=== PATIENT | male | born 1990 | race Caucasian/White ===

== ENCOUNTER 2018-10-11 22:29 | Emergency (ER) | payer OTHER ==
[2018-10-11 22:44] VITALS: RESP 16
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
[2018-10-11 22:55] LABS: Basophils # (A) 0.1 k/uL (0-0.2); Basophils % (A) 1 %; Eosinophils # (A) 0.2 k/uL (0-0.7); Eosinophils % (A) 2 %; HGB 17.3 gm/dL (13.0-17.5); Lymphocytes # (A) 2.4 k/uL (1.0-4.8); Lymphocytes % (A) 27 %; MCH 32.7 pg (25.0-35.0); MCHC 34.6 g/dL (31.0-37.0); MCV 94.7 fL (80.0-100.0); Mean Platelet Volume 6.5; Monocytes # (A) 0.5 k/uL (0-1.0); Monocytes % (A) 5 %; Neutrophils # (A) 5.4 k/uL (1.3-7.7); Neutrophils % (A) 62 %; Platelet Count 264 k/uL (150-450); RBC 5.28 m/uL (4.30-5.90); RDW 13.6 % (11.5-15.5); WBC 8.8 k/uL (3.8-10.6)
--- NOTE | 2018-10-11 22:57 | XR ---
EXAM: XR Chest, 1 View CLINICAL HISTORY: ITS.REASON XR Reason: Pain TECHNIQUE: Frontal view of the chest. COMPARISON: None FINDINGS: Hardware: None. Lungs/pleura: Normal. No focal consolidation. No pleural effusion or pneumothorax. Heart/mediastinum: Normal. No cardiomegaly. Soft tissues: Unremarkable. Bones: No acute fracture. Upper abdomen: Normal. IMPRESSION: No acute disease identified.
--- NOTE | 2018-10-11 22:59 | XR ---
EXAM: XR Pelvis, 1 or 2 Views CLINICAL HISTORY: ITS.REASON XR Reason: Pain TECHNIQUE: Frontal view of the pelvis. COMPARISON: None FINDINGS: Bones/joints: No displaced fracture or dislocation identified. Joint space is maintained. No bony lesion. Soft tissues: Present phleboliths in the pelvis. Nonspecific 2.0 cm calcified structure projected over the right sacrum. IMPRESSION: No displaced fracture or dislocation identified.
[2018-10-11 23:07] LABS: INR 0.9 (<1.2); Prothrombin Time 9.9 sec (9.0-12.0)
[2018-10-11 23:08] LABS: ALT 39 U/L (21-72); AST 48 U/L (17-59); Albumin 4.9 g/dL (3.5-5.0); Alkaline Phosphatase 97 U/L (38-126); Amylase 47 U/L (30-110); Anion Gap 12 mmol/L; Blood Urea Nitrogen 13 mg/dL (9-20); Calcium 9.5 mg/dL (8.4-10.2); Carbon Dioxide 28 mmol/L (22-30); Chloride 104 mmol/L (98-107); Glucose 104 mg/dL (74-99); Lipase 52 U/L (23-300); Potassium 4.1 mmol/L (3.5-5.1); Sodium 144 mmol/L (137-145); Total Bilirubin 0.4 mg/dL (0.2-1.3); Total Protein 8.2 g/dL (6.3-8.2)
[2018-10-11 23:10] LABS: Partial Thromboplastin Time 21.6 sec (22.0-30.0)
[2018-10-11 23:12] LABS: Glucose,Whole Blood 102 mg/dL (75-99)
[2018-10-11 23:14] LABS: Creatine Kinase 434 U/L (55-170)
[2018-10-11 23:18] LABS: Alcohol 257 mg/dL
[2018-10-11 23:27] LABS: Creatine Kinase MB 1.4 ng/mL (0.0-2.4); Troponin I <0.012 ng/mL (0.000-0.034)
--- NOTE | 2018-10-11 23:28 | CT ---
EXAM: CT Head Without Intravenous Contrast CLINICAL HISTORY: ITS.REASON CT Reason: Pain TECHNIQUE: Axial computed tomography images of the head/brain without intravenous contrast. CTDI is 45.2 mGy and DLP is 1062 mGy-cm. This CT exam was performed using one or more of the following dose reduction techniques: automated exposure control, adjustment of the mA and/or kV according to patient size, and/or use of iterative reconstruction technique. COMPARISON: None FINDINGS: Brain: No acute infarct or hemorrhage. No extra-axial fluid collection. No mass effect or midline shift. Ventricles and sulci: Normal. No ventriculomegaly or intraventricular hemorrhage. Skull: Normal. No bony lesion or fracture. Subcutaneous tissues: Mild left frontal temporal soft tissue swelling and laceration. Sinuses: Minimal mucosal thickening in the left maxillary sinus. Mastoid air cells: Normal. Orbits: Grossly unremarkable. IMPRESSION: No acute intracranial abnormality. Left frontal temporal soft tissue swelling and laceration. No acute fracture. EXAM: CT Cervical Spine Without Intravenous Contrast CLINICAL HISTORY: ITS.REASON CT Reason: Pain TECHNIQUE: Axial computed tomography images of the cervical spine without intravenous contrast. CTDI is 13 mGy and DLP is 354.1 mGy-cm. This CT exam was performed using one or more of the following dose reduction techniques: automated exposure control, adjustment of the mA and/or kV according to patient size, and/or use of iterative reconstruction technique. COMPARISON: None FINDINGS: Examination is mildly limited by motion artifact. Bones: Normal alignment. No acute fracture or bony lesion. Congenital non-fusion of the posterior arch of C1. Disc spaces: No subluxation. No spinal canal stenosis or neuroforaminal stenosis. Soft tissues: Normal. Other: Minimal mucosal thickening in the left maxillary sinus. Small scattered lymph nodes are likely reactive. IMPRESSION: No acute traumatic abnormality.
--- NOTE | 2018-10-11 23:41 | CT ---
EXAM: CT Chest With Intravenous Contrast CLINICAL HISTORY: ITS.REASON CT Reason: trauma TECHNIQUE: Axial computed tomography images of the chest with intravenous contrast. CTDI is 9 mGy and DLP is 766.2 mGy-cm. This CT exam was performed using one or more of the following dose reduction techniques: automated exposure control, adjustment of the mA and/or kV according to patient size, and/or use of iterative reconstruction technique. COMPARISON: None FINDINGS: Lung parenchyma: Normal. No focal consolidation. No nodule. Pleural space: Normal. No pleural effusion or pneumothorax. Mediastinum/georgi: Normal. No mass or lymphadenopathy. Heart: Normal. No cardiomegaly or pericardial effusion. Vasculature: Normal. No pulmonary embolus. Aorta: Normal. No aneurysm or dissection. Airways: Patent. Bones: Nondisplaced comminuted fractures of the posterior left 12th rib. Nondisplaced fracture of the posterior left 11th rib. No acute fracture in the thoracic spine. Muscles: No mass. Subcutaneous tissues: Mild bilateral gynecomastia. Other: Trace secretions in the esophagus. IMPRESSION: 1. Nondisplaced comminuted fractures of the posterior left 12th rib. Nondisplaced fracture of the posterior left 11th rib. 2. No significant pleural effusion or pneumothorax. No acute pulmonary parenchymal abnormality identified. EXAM: CT Abdomen and Pelvis With Intravenous Contrast CLINICAL HISTORY: ITS.REASON CT Reason: trauma TECHNIQUE: Axial computed tomography images of the abdomen and pelvis with intravenous contrast. CTDI is 9 mGy and DLP is 766.2 mGy-cm. This CT exam was performed using one or more of the following dose reduction techniques: automated exposure control, adjustment of the mA and/or kV according to patient size, and/or use of iterative reconstruction technique. COMPARISON: None FINDINGS: Portions of the common limited by motion artifact Liver: Normal. No focal lesion. Spleen: Normal. No focal lesion. Gallbladder: Normal. No stones or biliary dilatation. Pancreas: Normal. No acute inflammation. No mass. Adrenal glands: Normal. No mass. Kidneys: Normal. No hydronephrosis or stone. No mass. Bowel: Normal. No bowel obstruction or inflammation. Urinary bladder: Normal. No wall thickening or mass. Reproductive organs: Normal. Muscles: No mass. Subcutaneous tissues: Normal. Peritoneal space: Normal. No free fluid. Lymph nodes: Mildly prominent mesenteric lymph nodes are nonspecific but may be reactive. Vessels: Normal. No aneurysm or dissection. Bones: Please see accompanying CT chest regarding the left-sided rib fractures. No other acute fracture. Probable small bone islands in the pelvic bones. IMPRESSION: No acute traumatic abnormality in the abdomen or pelvis.
[2018-10-12] MEDS ORDERED: TOPICAL SKIN ADHESIVE 1 EACH AMP TOPICAL ONE (00:33)
[2018-10-12 01:32] VITALS: BP 139/97; PULSE 98; TEMP 97.8
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
== END 2018-10-12 01:28 | disposition home or self-care (01) ==
LOC: EC 22:29
DX: S22.39XA Fracture of one rib, unspecified side, initial encounter for closed fracture (principal); S01.81XA Laceration without foreign body of other part of head, initial encounter; S30.811A Abrasion of abdominal wall, initial encounter; H55.00 Unspecified nystagmus; Z88.0 Allergy status to penicillin; V48.5XXA Car driver injured in noncollision transport accident in traffic accident, initial encounter; Y92.410 Unspecified street and highway as the place of occurrence of the external cause
CPT/HCPCS: 99284; 12011; 36415; 86900; 86901; 80053; 82150; 82550; 82553; 83605; 83690; 84484; 85025; 85610; 85730; 86850; 72170; 71045; 72125; 70450; 71260; 74177; G0480; Q9967; 80320